=== PATIENT | female | born 1955 | race Caucasian/White ===

== ENCOUNTER 2017-03-07 00:23 | Inpatient (IN) | payer OTHER ==
[~2017-03-07] VITALS: Ht 165.1 cm; Wt 62.0 kg
[~2017-03-07 00:23] MED LIST: ACID CONTROL75 MG PO; ADULT LOW DOSE81 M1 PO; ADULT LOW DOSE81 MG PO; AVANDIA8 MG PO; Aldactone PO; BACLOFEN10 MG PO; BRILINTA90 MG PO; CALCIUM 600 +1 EA15 PO; CALCIUM600 M1 PO; CILOSTAZOL50 MG PO; DAILY MULTIPLE1 EACH PO; DILTIAZEM ER90 MG PO; DITROPAN5 MG PO; DOCUSATE SODIU1 EAC1 PO; DULCOLAX10 MG PR; FENOFIBRATE48 MG PO; FISH OIL 1,2001 EAC1 PO; FISH OIL OMEGA1 EAC1 PO; FISH OIL300 MG PO; FUROSEMIDE40 MG PO; GABAPENTIN600 MG PO; GLIPIZIDE5 MG PO; GLUCOPHAGE1000 MG PO; Habitrol,Nicoderm CQ TD; KLOR-CON M2020 MEQ PO; KLOR-CON20 MEQ PO; LANTUS 3 M100 UNITS1 SC; LEVAQUIN500 MG PO; LISINOPRIL10 MG PO; LISINOPRIL5 MG PO; LOPRESSOR25 MG PO; LORAZEPAM0.5 MG PO; Lasix PO; MELATIN3 MG PO; METFORMIN HCL500 MG PO; METFORMIN HCL850 MG PO; Mag-Ox PO; Micro-K,K-Tab,K-Dur, PO; NICOTINE PATCH1 EAC2 TD; NOVOLOG PE100 UNITS/ SC; Nitrostat,NitroQuick SL; OMEPRAZOLE20 M2 PO; ONDANSETRON HCL4 MG PO; OXYCODONE HCL10 MG PO; PENTOXIFYLLINE400 MG PO; PERCOCET 10/1 TABLET PO; PRAVASTATIN SOD80 MG PO; PRINIVIL40 MG PO; Rocephin IV; SENNA S TABLET1 EACH PO; SERTRALINE HCL100 MG PO; SERTRALINE HCL50 MG PO; SPIRONOLACTONE25 MG PO; Santyl TP; THERA-D2000 UNIT PO; TOPROL XL50 MG PO; TRAMADOL HCL50 MG PO; TRAZODONE HCL150 MG PO; TRAZODONE HCL50 MG PO; Tylenol Regular Stre PO; ULTRAM50 MG PO; VITAMIN D32000 UNI1 PO; Xanax PO; ZOCOR80 MG PO; ZOFRAN4 MG PO; Zestril,Prinivil PO
[2017-03-07 00:47] LABS: HEMATOCRIT 39.7 % (36.0-46.0); MEAN PLAT.VOLUME 9.5 uM^3 (9.5-12.4); PLATELET COUNT 146 K/uL (156-360); RBC DIS.WIDTH-CV 12.8 % (11.8-14.6); RBC DIS.WIDTH-SD 40.9 % (39-53); RED BLOOD COUNT 4.51 M/uL (3.80-5.20); WHITE BLOOD COUNT 6.1 K/uL (4.1-10.2)
[2017-03-07 00:55] LABS: CHLORIDE 102 mEq/L (99-109); SODIUM 138 mEq/L (136-147)
[2017-03-07 00:57] LABS: GLUCOSE 197 mg/dL (70-99)
[2017-03-07 00:58] LABS: ANION GAP 10 MEQ/L (2-14)
[2017-03-07 01:00] LABS: SERUM ETHYL ALCOHOL < 10 mg/dL
[2017-03-07 01:01] LABS: GFR ESTIMATE (CALCULATED) 49 mL/min/
[2017-03-07 01:03] LABS: UREA NITROGEN (BUN) 22 mg/dL (9-23)
[2017-03-07 01:04] LABS: SALICYLATE < 5.0 MG/DL (15-30)
[2017-03-07 02:27] LABS: ADD MIUA? YES; BILIRUBIN NEGATIVE; BLOOD NEGATIVE; COLOR YELLOW ((YELLOW)); GLUCOSE (STRIP) 150; KETONES NEGATIVE; LEUKOCYTES NEGATIVE; NITRITE NEGATIVE; PROTEIN (STRIP) 100; SPECIFIC GRAVITY 1.013 (1.000-1.030); UROBILINOGEN 0.2 MG/DL (0.2-1.0)
[2017-03-07 02:33] LABS: BACTERIA RARE /HPF; EPITHELIAL CELLS RARE /HPF; MUCUS NONE SEEN /LPF; RED BLOOD CELLS 0-5 /HPF (0-5); UCUL ADDED? NO; WHITE BLOOD CELLS 0-5 /HPF (0-5)
[2017-03-07 02:38] LABS: AMPHETAMINE NEGATIVE (500 ng/mL); BARBITURATES NEGATIVE (200 ng/mL); BENZODIAZEPINES NEGATIVE (150 ng/mL); COCAINE NEGATIVE (150 ng/mL); INTERNAL CONTROLS VALID? YES; METHADONE NEGATIVE (200 ng/mL); METHAMPHETAMINE NEGATIVE (500 ng/mL); OPIATES (MORPHINE) NEGATIVE (100 ng/mL); OXYCODONE NEGATIVE (100 ng/mL); PHENCYCLIDINE NEGATIVE (25 ng/mL); PROPOXYPHENE NEGATIVE (300 ng/mL); THC CANNABINOIDS NEGATIVE (50 ng/mL); TRICYCLIC ANTIDEPRESSANTS NEGATIVE (300 ng/mL)
[2017-03-07 09:42] LABS: POINT-OF-CARE METER ID UU14100415
[2017-03-07 18:29] VITALS: BP 116/67; BP 116/75
[2017-03-07 18:44] LABS: POINT-OF-CARE METER ID UU13113725
[2017-03-08 01:17] VITALS: BP 104/60
[2017-03-08 05:51] LABS: POINT-OF-CARE METER ID UU13113725
[2017-03-08 06:55] VITALS: BP 101/56
[2017-03-08 09:27] LABS: TREPONEMA ANTIBODY NEGATIVE (NEGATIVE)
[2017-03-08 11:27] LABS: POINT-OF-CARE METER ID UU13113725
[2017-03-08 15:21] VITALS: BP 120/56
[2017-03-08 16:57] LABS: POINT-OF-CARE METER ID UU13113725
[2017-03-08] MEDS ORDERED: GLIPIZIDE5 MG PO (19:17)
[2017-03-08] MEDS ORDERED: CLONAZEPAM0.5 MG PO (19:18)
[2017-03-08] MEDS ORDERED: METFORMIN HCL1000 MG PO (19:18)
[2017-03-08] MEDS ORDERED: DESYREL 150 MG150 MG PO (19:19)
[2017-03-08] MEDS ORDERED: SERTRALINE HCL50 MG PO (19:19)
[2017-03-08] MEDS ORDERED: PRAVASTATIN SOD80 MG PO (19:20)
[2017-03-08] MEDS ORDERED: BACLOFEN10 MG PO (19:20)
[2017-03-08] MEDS ORDERED: DITROPAN5 MG PO (19:20)
[2017-03-08] MEDS ORDERED: CILOSTAZOL50 MG PO (19:21)
[2017-03-08] MEDS ORDERED: GABAPENTIN600 MG PO (19:21)
[2017-03-08] MEDS ORDERED: LISINOPRIL5 MG PO (19:22)
[2017-03-08] MEDS ORDERED: SPIRONOLACTONE25 MG PO (19:23)
[2017-03-08 23:23] VITALS: BP 138/69
[2017-03-09 06:10] LABS: POINT-OF-CARE METER ID UU13113725
[2017-03-09 07:25] VITALS: BP 120/62
[2017-03-09 11:50] LABS: POINT-OF-CARE METER ID UU13113725
[2017-03-09 17:15] VITALS: BP 134/64
[2017-03-09 22:37] VITALS: BP 138/68
[2017-03-10 07:15] VITALS: BP 107/69
[2017-03-10 11:36] LABS: POINT-OF-CARE METER ID UU13113725
[2017-03-10 16:05] LABS: POINT-OF-CARE METER ID UU13113725
[2017-03-10 16:06] VITALS: BP 136/65
[2017-03-10 19:12] VITALS: BP 119/56
[2017-03-11 06:21] LABS: POINT-OF-CARE METER ID UU13113725
[2017-03-11 07:48] VITALS: BP 111/53
[2017-03-11 16:10] VITALS: BP 137/65
[2017-03-12 00:16] VITALS: BP 122/79
[2017-03-12 05:51] LABS: POINT-OF-CARE METER ID UU13113725
[2017-03-12 07:39] VITALS: BP 125/57
[2017-03-12 11:15] LABS: POINT-OF-CARE METER ID UU13113725
[2017-03-12 15:54] VITALS: BP 125/60
[2017-03-12 16:43] LABS: POINT-OF-CARE METER ID UU13113725
[2017-03-12 22:47] VITALS: BP 172/83
[2017-03-13 05:58] LABS: POINT-OF-CARE METER ID UU13113725
[2017-03-13 07:41] VITALS: BP 115/58
[2017-03-13 15:37] VITALS: BP 134/58
[2017-03-13 22:41] VITALS: BP 152/69
[2017-03-14 04:00] VITALS: BP 145/77
[2017-03-14 05:58] LABS: POINT-OF-CARE METER ID UU13113725
[2017-03-14 07:20] VITALS: BP 115/54
[2017-03-14 11:26] LABS: POINT-OF-CARE METER ID UU13113725
[2017-03-14 15:26] VITALS: BP 129/60
[2017-03-14 23:15] VITALS: BP 154/80
[2017-03-15 06:08] LABS: POINT-OF-CARE METER ID UU13113725
[2017-03-15 07:42] VITALS: BP 132/62
[2017-03-15 11:49] LABS: POINT-OF-CARE METER ID UU13113725
[2017-03-15 15:00] VITALS: BP 148/71
[2017-03-15 23:55] VITALS: BP 163/72
[2017-03-16 05:57] LABS: POINT-OF-CARE METER ID UU13113725
[2017-03-16 07:10] VITALS: BP 145/65
[2017-03-16 11:41] LABS: POINT-OF-CARE METER ID UU13113725
[2017-03-16 15:00] VITALS: BP 143/67
[2017-03-16 23:57] VITALS: BP 157/70
[2017-03-17 05:45] LABS: POINT-OF-CARE METER ID UU13113725
[2017-03-17 07:07] VITALS: BP 120/61
[2017-03-17 15:51] LABS: POINT-OF-CARE METER ID UU13113725
[2017-03-17 15:57] VITALS: BP 142/62
[2017-03-17 19:37] VITALS: BP 129/71
[2017-03-18 00:31] VITALS: BP 142/78
[2017-03-18 05:47] LABS: POINT-OF-CARE METER ID UU13113725
[2017-03-18 09:05] VITALS: BP 128/76
[2017-03-18 11:53] LABS: POINT-OF-CARE METER ID UU13113725
[2017-03-18 15:57] VITALS: BP 144/60
[2017-03-18 16:54] LABS: POINT-OF-CARE METER ID UU13113725
[2017-03-19] VITALS: BP 132/65
[2017-03-19 05:47] LABS: POINT-OF-CARE METER ID UU13113725; POINT-OF-CARE USER ID 608261316
[2017-03-19 07:12] VITALS: BP 103/58
[2017-03-19 11:40] LABS: POINT-OF-CARE METER ID UU13113725
[2017-03-19 14:55] VITALS: BP 149/68
[2017-03-19 23:21] VITALS: BP 167/76
[2017-03-20 05:40] LABS: POINT-OF-CARE METER ID UU13113725
[2017-03-20 07:08] VITALS: BP 112/63
[2017-03-20 11:16] LABS: POINT-OF-CARE METER ID UU13113725
[2017-03-20 15:44] VITALS: BP 144/66
[2017-03-20 20:51] LABS: POINT-OF-CARE METER ID UU13113725
[2017-03-20 22:28] VITALS: BP 169/79
[2017-03-21 05:54] LABS: POINT-OF-CARE METER ID UU13113725
[2017-03-21 06:50] VITALS: BP 123/58
[2017-03-21 11:11] LABS: POINT-OF-CARE METER ID UU13113725
[2017-03-21 15:00] VITALS: BP 126/61
[2017-03-22 00:14] VITALS: BP 134/86
[2017-03-22 05:51] LABS: POINT-OF-CARE METER ID UU13113725
[2017-03-22 07:16] VITALS: BP 118/58
[2017-03-22 07:43] LABS: EOSINOPHIL (%) 5.7 % (0-5); EOSINOPHIL COUNT 0.4 K/uL (0-0.3); HEMATOCRIT 38.9 % (36.0-46.0); IMMATURE GRANULOCYTE (%) 0.3 % (0.0-0.7); LYMPHOCYTE COUNT 2.3 K/uL (1.0-2.8); MCH 29.4 PG (29.0-34.0); MCHC 33.9 G/DL (30.0-36.0); MCV 86.6 FL (83-99); MONOCYTE (%) 7.3 % (3-12); MONOCYTE COUNT 0.5 K/uL (0-0.8); NEUTROPHIL (%) 49.1 % (45-76); PLATELET COUNT 124 K/uL (156-360); RBC DIS.WIDTH-CV 12.4 % (11.8-14.6); RBC DIS.WIDTH-SD 39.4 % (39-53); RED BLOOD COUNT 4.49 M/uL (3.80-5.20); WHITE BLOOD COUNT 6.2 K/uL (4.1-10.2)
[2017-03-22 07:51] LABS: ANION GAP 11 MEQ/L (2-14); CHLORIDE 104 MEQ/L (99-109); GFR ESTIMATE (CALCULATED) > 59 mL/min/; GLUCOSE 170 mg/dL (70-99); POTASSIUM 3.9 MEQ/L (3.7-5.4); SAMPLE HEMOLYSIS CHECK 0; SAMPLE ICTERIC CHECK 0; SAMPLE LIPEMIA CHECK 0; SODIUM 137 MEQ/L (136-147); UREA NITROGEN (BUN) 24 mg/dL (9-23)
[2017-03-22 08:20] LABS: MEAN PLAT.VOLUME 11.5 uM^3 (9.5-12.4)
[2017-03-22 12:02] LABS: POINT-OF-CARE METER ID UU13113725
[2017-03-22 15:00] VITALS: BP 113/61
[2017-03-23 00:07] VITALS: BP 163/71
[2017-03-23 06:36] LABS: POINT-OF-CARE METER ID UU13113725
[2017-03-23 07:37] VITALS: BP 112/58
[2017-03-23 11:07] LABS: POINT-OF-CARE METER ID UU13113725
[2017-03-23 16:15] VITALS: BP 125/60
[2017-03-23 16:49] LABS: POINT-OF-CARE METER ID UU13113725
[2017-03-23 21:01] LABS: POINT-OF-CARE METER ID UU13113725
[2017-03-23 23:50] VITALS: BP 163/77
[2017-03-24 06:04] LABS: POINT-OF-CARE METER ID UU13113725
[2017-03-24 07:15] VITALS: BP 126/58
[2017-03-24] MEDS ORDERED: EFFEXOR37.5 MG PO (12:16)
[2017-03-24] MEDS ORDERED: ALPRAZOLAM0.25 M2 PO (12:16)
[2017-03-24] MEDS ORDERED: NICOTINE PATCH1 EAC1 TD (12:16)
[2017-03-24] MEDS ORDERED: MIRTAZAPINE30 MG PO (12:16)
[2017-03-24] MEDS ORDERED: ASPIR-LOW81 MG PO (12:16)
== END 2017-03-24 13:38 | DRG 881 ==
LOC: EME 00:23 → EDOF 15:01 → 5EAST 15:01
PROVIDERS: Emergency Medicine; Hospitalist; Internal Medicine
DX: F32.9 Major depressive disorder, single episode, unspecified (principal); D69.6 Thrombocytopenia, unspecified; E11.40 Type 2 diabetes mellitus with diabetic neuropathy, unspecified; I10 Essential (primary) hypertension; F41.9 Anxiety disorder, unspecified; G89.29 Other chronic pain; F17.210 Nicotine dependence, cigarettes, uncomplicated; R26.2 Difficulty in walking, not elsewhere classified; R25.1 Tremor, unspecified; F91.9 Conduct disorder, unspecified; M79.672 Pain in left foot; M79.671 Pain in right foot; G47.00 Insomnia, unspecified; Z86.73 Personal history of transient ischemic attack (TIA), and cerebral infarction without residual deficits; H60.92 Unspecified otitis externa, left ear; I25.2 Old myocardial infarction; Z88.0 Allergy status to penicillin
CPT/HCPCS: 71010; 80048; 81003; 82607; 82746; 82948; 84443; 85025; 85027; 86780; 90837; 95819; 97530 GO; 97530 GP; 99202; 99281; 99285; G0480; J1650; J1815

== ENCOUNTER 2017-07-31 09:29 | Observation (INO) | payer OTHER ==
[~2017-07-31] VITALS: Ht 165.1 cm; Wt 76.5 kg
[~2017-07-31 09:29] MED LIST changes: +ALPRAZOLAM0.25 M2 PO; +ASPIR-LOW81 MG PO; +CLONAZEPAM0.5 MG PO; +DESYREL 150 MG150 MG PO; +EFFEXOR37.5 MG PO; +METFORMIN HCL1000 MG PO; +MIRTAZAPINE30 MG PO; +NICOTINE PATCH1 EAC1 TD
[2017-07-31 10:26] LABS: HEMATOCRIT 35.8 % (36.0-46.0); MCH 27.2 PG (29.0-34.0); MCHC 31.8 G/DL (30.0-36.0); MCV 85.4 FL (83-99); MEAN PLAT.VOLUME 9.8 uM^3 (9.5-12.4); PLATELET COUNT 129 K/uL (156-360); RBC DIS.WIDTH-CV 14.2 % (11.8-14.6); RBC DIS.WIDTH-SD 43.8 % (39-53); RED BLOOD COUNT 4.19 M/uL (3.80-5.20); WHITE BLOOD COUNT 7.7 K/uL (4.1-10.2)
[2017-07-31 10:30] LABS: CHLORIDE 100 mEq/L (99-109); POTASSIUM 3.7 mEq/L (3.7-5.4); SODIUM 135 mEq/L (136-147)
[2017-07-31 10:33] LABS: GLUCOSE 333 mg/dL (70-99)
[2017-07-31 10:34] LABS: ANION GAP 13 MEQ/L (2-14)
[2017-07-31 10:35] LABS: TOTAL BILIRUBIN 0.3 mg/dL (0.0-1.0)
[2017-07-31 10:36] LABS: ALKALINE PHOSPHATASE 61 IU/L (3-129); GFR ESTIMATE (CALCULATED) 54 mL/min/
[2017-07-31 10:37] LABS: UREA NITROGEN (BUN) 17 mg/dL (9-23)
[2017-07-31 10:54] LABS: ADD MIUA? YES; BILIRUBIN NEGATIVE; BLOOD SMALL; COLOR STRAW ((YELLOW)); GLUCOSE (STRIP) >=500; KETONES NEGATIVE; LEUKOCYTES NEGATIVE; NITRITE NEGATIVE; PROTEIN (STRIP) 100; SPECIFIC GRAVITY 1.016 (1.000-1.030); UROBILINOGEN 0.2 MG/DL (0.2-1.0)
[2017-07-31 10:57] LABS: BACTERIA NONE SEEN /HPF; EPITHELIAL CELLS RARE /HPF; MUCUS NONE SEEN /LPF; RED BLOOD CELLS 0-5 /HPF (0-5); UCUL ADDED? NO; WHITE BLOOD CELLS 0-5 /HPF (0-5)
[2017-07-31] MEDS ORDERED: JANUVIA100 MG PO (12:34)
[2017-07-31] MEDS ORDERED: ZANTAC300 MG PO (12:36)
[2017-07-31] MEDS ORDERED: CIPRO250 MG PO (12:36)
[2017-07-31] MEDS ORDERED: REMERON15 M2 PO (12:38)
[2017-07-31 16:06] VITALS: BP 140/67
[2017-07-31 17:13] LABS: POINT-OF-CARE METER ID UU13113700
[2017-07-31 20:00] VITALS: BP 135/61; BP 136/61
[2017-07-31 20:50] LABS: POINT-OF-CARE METER ID UU13113831
[2017-07-31 21:31] LABS: POINT-OF-CARE METER ID UU13113831
[2017-08-01 00:39] VITALS: BP 136/61
[2017-08-01 03:49] VITALS: BP 98/55
[2017-08-01 07:52] VITALS: BP 142/78
[2017-08-01 08:50] LABS: POINT-OF-CARE METER ID UU14162513
[2017-08-01 11:59] LABS: POINT-OF-CARE METER ID UU14162513
[2017-08-01 12:06] VITALS: BP 109/59
[2017-08-02] MEDS ORDERED: TRILEPTAL150 MG PO (12:28)
== END 2017-08-01 13:41 | disposition home or self-care (01) ==
LOC: EME → EDBD 09:29 → EDOF 12:43 → 5WEST 12:43 → EDOF 12:43 → ENRESERV 12:44 → 5WEST 14:49
PROVIDERS: Internal Medicine; Nurse Practitioner Family
DX: R56.9 Unspecified convulsions (principal); E11.40 Type 2 diabetes mellitus with diabetic neuropathy, unspecified; F32.9 Major depressive disorder, single episode, unspecified; F17.210 Nicotine dependence, cigarettes, uncomplicated; G93.89 Other specified disorders of brain; J44.9 Chronic obstructive pulmonary disease, unspecified; G89.29 Other chronic pain; I25.10 Atherosclerotic heart disease of native coronary artery without angina pectoris; Z95.5 Presence of coronary angioplasty implant and graft; Z86.73 Personal history of transient ischemic attack (TIA), and cerebral infarction without residual deficits; I10 Essential (primary) hypertension; E78.5 Hyperlipidemia, unspecified; I25.2 Old myocardial infarction; Z88.0 Allergy status to penicillin; Z79.84 Long term (current) use of oral hypoglycemic drugs
CPT/HCPCS: 70450; 71010; 74177; 80053; 81003; 82948; 85027; 93005; 95819; 99281; 99285; G0378; J1815; J1953; J2060; J7030; J7050

== ENCOUNTER 2017-08-02 09:37 | Emergency (ER) | payer OTHER ==
[~2017-08-02] VITALS: Ht 170.2 cm; Wt 66.8 kg
[~2017-08-02 09:37] MED LIST changes: +CIPRO250 MG PO; +JANUVIA100 MG PO; +REMERON15 M2 PO; +ZANTAC300 MG PO
[2017-08-02 10:56] LABS: EOSINOPHIL (%) 3.4 % (0-5); EOSINOPHIL COUNT 0.3 K/uL (0-0.3); HEMATOCRIT 39.2 % (36.0-46.0); IMMATURE GRANULOCYTE (%) 0.4 % (0.0-0.7); INSTRUMENT ABS NEUTROPHIL CT 5.6 K/uL; LYMPHOCYTE COUNT 1.3 K/uL (1.0-2.8); MCH 27.1 PG (29.0-34.0); MCHC 31.1 G/DL (30.0-36.0); MCV 86.9 FL (83-99); MEAN PLAT.VOLUME 9.9 uM^3 (9.5-12.4); MONOCYTE (%) 4.5 % (3-12); MONOCYTE COUNT 0.3 K/uL (0-0.8); NEUTROPHIL (%) 74.6 % (45-76); NEUTROPHIL COUNT 5.6 K/uL (1.8-6.4); PLATELET COUNT 137 K/uL (156-360); RBC DIS.WIDTH-CV 14.5 % (11.8-14.6); RBC DIS.WIDTH-SD 46.2 % (39-53); RED BLOOD COUNT 4.51 M/uL (3.80-5.20); WHITE BLOOD COUNT 7.6 K/uL (4.1-10.2)
[2017-08-02 11:05] LABS: CHLORIDE 104 mEq/L (99-109); POTASSIUM 3.8 mEq/L (3.7-5.4); SODIUM 138 mEq/L (136-147)
[2017-08-02 11:07] LABS: GLUCOSE 307 mg/dL (70-99)
[2017-08-02 11:08] LABS: ANION GAP 11 MEQ/L (2-14)
[2017-08-02 11:10] LABS: ALKALINE PHOSPHATASE 56 IU/L (3-129); TOTAL BILIRUBIN 0.4 mg/dL (0.0-1.0)
[2017-08-02 11:11] LABS: GFR ESTIMATE (CALCULATED) 54 mL/min/
[2017-08-02 11:12] LABS: UREA NITROGEN (BUN) 18 mg/dL (9-23)
[2017-08-02] MEDS ORDERED: TRILEPTAL150 MG PO (12:28)
[2017-08-02 13:43] VITALS: BP 125/71
== END 2017-08-02 13:05 | disposition home or self-care (01) ==
LOC: EME 09:37
PROVIDERS: Emergency Medicine
DX: G40.909 Epilepsy, unspecified, not intractable, without status epilepticus (principal); I69.351 Hemiplegia and hemiparesis following cerebral infarction affecting right dominant side; I10 Essential (primary) hypertension; E11.40 Type 2 diabetes mellitus with diabetic neuropathy, unspecified; J44.9 Chronic obstructive pulmonary disease, unspecified; I25.2 Old myocardial infarction; Z95.1 Presence of aortocoronary bypass graft; F41.9 Anxiety disorder, unspecified; F32.9 Major depressive disorder, single episode, unspecified; F17.200 Nicotine dependence, unspecified, uncomplicated; Z79.84 Long term (current) use of oral hypoglycemic drugs; Z88.0 Allergy status to penicillin
CPT/HCPCS: 80053; 85025; 99281; 99284

== ENCOUNTER 2017-08-04 18:26 | Emergency (ER) | payer OTHER ==
[~2017-08-04] VITALS: Ht 165.1 cm; Wt 71.9 kg
[~2017-08-04 18:26] MED LIST changes: +TRILEPTAL150 MG PO
[2017-08-04 19:14] LABS: HEMATOCRIT 36.2 % (36.0-46.0); MCH 27.8 PG (29.0-34.0); MCHC 32.6 G/DL (30.0-36.0); MCV 85.2 FL (83-99); MEAN PLAT.VOLUME 10.3 uM^3 (9.5-12.4); PLATELET COUNT 138 K/uL (156-360); RBC DIS.WIDTH-CV 14.4 % (11.8-14.6); RBC DIS.WIDTH-SD 44.3 % (39-53); RED BLOOD COUNT 4.25 M/uL (3.80-5.20); WHITE BLOOD COUNT 8.3 K/uL (4.1-10.2)
[2017-08-04 19:23] LABS: CHLORIDE 107 mEq/L (99-109); POTASSIUM 3.8 mEq/L (3.7-5.4); SODIUM 140 mEq/L (136-147)
[2017-08-04 19:24] LABS: GLUCOSE 203 mg/dL (70-99)
[2017-08-04 19:25] LABS: ADD MIUA? YES; BILIRUBIN NEGATIVE; BLOOD NEGATIVE; COLOR YELLOW ((YELLOW)); GLUCOSE (STRIP) NEGATIVE; KETONES NEGATIVE; LEUKOCYTES NEGATIVE; NITRITE NEGATIVE; PROTEIN (STRIP) 100; SPECIFIC GRAVITY 1.025 (1.000-1.030)
[2017-08-04 19:26] LABS: ANION GAP 13 MEQ/L (2-14)
[2017-08-04 19:28] LABS: GFR ESTIMATE (CALCULATED) > 59 mL/min/
[2017-08-04 19:29] LABS: UREA NITROGEN (BUN) 19 mg/dL (9-23)
[2017-08-04 19:34] VITALS: BP 170/82
[2017-08-04 19:45] LABS: BACTERIA 2+ /HPF; CASTS NONE SEEN /LPF; EPITHELIAL CELLS 2+ /HPF; MUCUS 1+ /LPF; RED BLOOD CELLS NONE SEEN /HPF (0-5); UCUL ADDED? YES; WHITE BLOOD CELLS 0-5 /HPF (0-5)
== END 2017-08-05 00:06 | disposition home or self-care (01) ==
LOC: EME 18:26
PROVIDERS: Emergency Medicine
DX: R56.9 Unspecified convulsions (principal); Z86.73 Personal history of transient ischemic attack (TIA), and cerebral infarction without residual deficits; I10 Essential (primary) hypertension; J44.9 Chronic obstructive pulmonary disease, unspecified; E11.9 Type 2 diabetes mellitus without complications; F41.9 Anxiety disorder, unspecified; F32.9 Major depressive disorder, single episode, unspecified; I25.2 Old myocardial infarction; Z95.1 Presence of aortocoronary bypass graft; Z79.84 Long term (current) use of oral hypoglycemic drugs; Z88.0 Allergy status to penicillin; F17.200 Nicotine dependence, unspecified, uncomplicated
CPT/HCPCS: 70450; 80048; 81003; 85027; 87086; 93005; 99281; 99284

== ENCOUNTER 2018-01-19 17:46 | Emergency (ER) | payer OTHER ==
[~2018-01-19] VITALS: Ht 157.5 cm; Wt 79.9 kg
[~2018-01-19 17:46] MED LIST changes: +CLOPIDOGREL75 MG PO; +OXCARBAZEPINE300 MG PO; +POLYETHYLENE G255 GM PO
[2018-01-19 19:15] LABS: BASOPHIL (%) 0.4 % (0-1); EOSINOPHIL (%) 6.7 % (0-5); EOSINOPHIL COUNT 0.4 K/uL (0-0.3); HEMATOCRIT 34.3 % (36.0-46.0); HEMOGLOBIN 10.8 G/DL (11.9-15.5); IMMATURE GRANULOCYTE (%) 0.4 % (0.0-0.7); LYMPHOCYTE (%) 29.3 % (15-42); LYMPHOCYTE COUNT 1.6 K/uL (1.0-2.8); MCH 25.8 PG (29.0-34.0); MCHC 31.5 G/DL (30.0-36.0); MCV 82.1 FL (83-99); MONOCYTE COUNT 0.4 K/uL (0-0.8); NEUTROPHIL (%) 56.2 % (45-76); PLATELET COUNT 207 K/uL (156-360); RBC DIS.WIDTH-CV 14.7 % (11.8-14.6); RBC DIS.WIDTH-SD 44.3 % (39-53); RED BLOOD COUNT 4.18 M/uL (3.80-5.20); WHITE BLOOD COUNT 5.4 K/uL (4.1-10.2)
[2018-01-19 19:21] LABS: INTER. NORMALIZED RATIO 0.9
[2018-01-19 19:23] LABS: CHLORIDE 102 mEq/L (99-109); POTASSIUM 4.4 mEq/L (3.7-5.4); SODIUM 139 mEq/L (136-147)
[2018-01-19 19:24] LABS: PTT 28.7 SEC (25-37)
[2018-01-19 19:25] LABS: GLUCOSE 134 mg/dL (70-99)
[2018-01-19 19:29] LABS: CREATININE 1.1 mg/dL (0.6-1.3); GFR ESTIMATE (CALCULATED) 53 mL/min/
[2018-01-19 19:30] LABS: UREA NITROGEN (BUN) 19 mg/dL (9-23)
[2018-01-19 19:35] LABS: TROP-I INTERPRETATION NEGATIVE; TROPONIN-I 0.03 ng/mL (0.0-0.30)
[2018-01-19 22:33] LABS: TROP-I INTERPRETATION NEGATIVE; TROPONIN-I 0.03 ng/mL (0.0-0.30)
[2018-01-19] MEDS ORDERED: DOXYCYCLINE HY100 MG PO (23:16)
[2018-01-20 01:20] VITALS: BP 168/70
== END 2018-01-20 01:34 ==
LOC: EME 17:46
PROVIDERS: Emergency Medicine
DX: M79.89 Other specified soft tissue disorders (principal); R00.0 Tachycardia, unspecified; I45.4 Nonspecific intraventricular block; R94.31 Abnormal electrocardiogram [ECG] [EKG]; I25.10 Atherosclerotic heart disease of native coronary artery without angina pectoris; E04.2 Nontoxic multinodular goiter; E11.40 Type 2 diabetes mellitus with diabetic neuropathy, unspecified; J44.9 Chronic obstructive pulmonary disease, unspecified; I10 Essential (primary) hypertension; I25.2 Old myocardial infarction; I69.351 Hemiplegia and hemiparesis following cerebral infarction affecting right dominant side; F41.9 Anxiety disorder, unspecified; F32.9 Major depressive disorder, single episode, unspecified; Z79.84 Long term (current) use of oral hypoglycemic drugs; Z87.891 Personal history of nicotine dependence; Z95.1 Presence of aortocoronary bypass graft; Z86.79 Personal history of other diseases of the circulatory system; Z87.2 Personal history of diseases of the skin and subcutaneous tissue; Z88.0 Allergy status to penicillin
CPT/HCPCS: 71045; 71275; 80048; 83880; 84484; 85025; 85379; 85610; 85730; 93005; 93970; 99281; 99285; J7030